=== PATIENT | male | born 1995 | race Caucasian/White ===

== ENCOUNTER 2017-05-17 16:07 | Emergency (ER) | payer BC ==
[~2017-05-17] VITALS: Ht 188 cm; Wt 113.4 kg
[2017-05-17 16:50] LABS: BASOPHILS % (AUTO) 1.2 % (0.0-2.0); EOSINOPHILS % (AUTO) 1.9 % (0.0-3.0); LYMPHOCYTES % (AUTO) 24.1 % (20.0-45.0); MEAN CORPUSCULAR HEMOGLOBIN 30.3 PG (27.0-31.0); MEAN CORPUSCULAR HGB CONC 34.5 G/DL (32.0-36.0); MEAN CORPUSCULAR VOLUME 88 FL (80-99); MONOCYTES % (AUTO) 8.9 % (1.0-10.0); PLATELET COUNT 240 K/UL (150-450); RED BLOOD COUNT 5.52 M/UL (4.70-6.10); RED CELL DISTRIBUTION WIDTH 11.3 % (11.6-14.8); WHITE BLOOD COUNT 11.3 K/UL (4.8-10.8)
[2017-05-17 17:06] LABS: TROPONIN I < 0.30 ng/mL (<=0.30)
[2017-05-17 17:09] LABS: ALANINE AMINOTRANSFERASE 17 U/L (3-41); ALBUMIN/GLOBULIN RATIO 1.5 (1.0-2.7); ALCOHOL < 10 mg/dL; ANION GAP 21 (5-15); ASPARTATE AMINO TRANSFERASE 15 U/L (5-40); CALCIUM 9.7 mg/dL (8.6-10.2); CARBON DIOXIDE 22 mEQ/L (20-30); CHLORIDE 96 mEQ/L (98-107); GLOMERULAR FILTRATION RATE > 60 mL/min (>60); HEMOLYSIS 9; POTASSIUM 4.4 mEQ/L (3.4-4.9); SODIUM 139 mEQ/L (135-145); TOTAL PROTEIN 7.9 g/dL (6.6-8.7)
--- NOTE | 2017-05-17 17:24 | Emergency Room Report ---
History of Present Illness General Chief Complaint: Seizure Source: Patient Present Illness HPI This patient presents for a seizure that was witnessed by his coworkers just prior to arrival. The patient states that he was in [place] this last weekend and and just had a first time seizure there. He states his first-time seizure was in the middle of the night and lasted less than a minute. The patient states that he hadn't slept much in had been drinking alcohol all day. He states that he wasn't really intoxicated. However, he states that just before she went to lay down he got very upset and had a panic attack and about 30 minutes later is when he was witnessed having a seizure. He did get seen in an ER 5 days ago and his license was revoked. He states that he saw a neurologist the next day and is planned undergo an EEG and an MRI tomorrow. He has not had a seizure since 8 days ago until today. He states he went to work today in his normal state of health. He admits he did get sunburned this weekend. He did drink last night but only drank a few beers. He states he has never had a history of seizure. Per report, the coworkers the patient noted that he had a tonic clonic seizure. The patient does not recall any of the events. He states he woke up being placed on a stretcher and moved into an ambulance. He denies drug use. He denies recent trauma. He denies headache. He denies fever or chills. He denies neck pain. He states that he feels back to baseline now. He has no other complaints. Allergies: Coded Allergies: PINEAPPLE (Verified Allergy, Severe, 05/17/17) SWELLING OF THROAT Patient History Past Medical History: see triage record, DM Social History: Reports: alcohol use, Denies: drug use, smoking Reviewed Nursing Documentation: PMH: Agreed, PSxH: Agreed Nursing Documentation-PMH Past Medical History: No History, Except For Hx Seizures: Yes Review of Systems All Other Systems: negative except mentioned in HPI Physical Exam Vital Signs Date Time Temp Pulse Resp B/P Pulse Ox O2 Delivery O2 Flow Rate FiO2 05/17/17 16:12 98.8 92 28 119/67 95 Room Air Sp02 EP Interpretation: reviewed, normal General Appearance: no apparent distress, alert, GCS 15, non-toxic Head: normocephalic, atraumatic Eyes: bilateral eye PERRL, bilateral eye normal inspection ENT: hearing grossly normal, normal pharynx, no angioedema, normal voice, other - Facial abrasions on L. forehead, nose and L. cheek. Neck: full range of motion, supple/symm/no masses Respiratory: chest non-tender, lungs clear, normal breath sounds, speaking full sentences Cardiovascular #1: regular rate, rhythm, no edema Gastrointestinal: normal bowel sounds, non tender, soft, non-distended, no guarding, no rebound Rectal: deferred Musculoskeletal: back normal, gait/station normal, normal range of motion, non- tender Neurologic: alert, oriented x3, responsive, motor strength/tone normal, sensory intact, speech normal Psychiatric: judgement/insight normal, memory normal, mood/affect normal, no suicidal/homicidal ideation Skin: normal color, no rash, warm/dry, well hydrated Medical Decision Making Diagnostic Impression: Primary Impression: Seizure Additional Impression: Seizure disorder ER Course This patient now has had 2 seizures in the past week. These are new onset. This patient has never had seizures. The patient also has an EKG with a incomplete right bundle branch block and is not normal for his age. His laboratory workup is noncontributory. This included a CBC, CMP, cardiac enzymes and drug screen. This patient will need to be admitted for further assessment of now only current seizure disorder. Patient will likely need an MRI of his brain and to be seen by a neurologist. He may also need a cardiac workup. The patient is admitted for further evaluation and treatment. Labs Test 05/17/17 16:20 White Blood Count 11.3 K/UL (4.8-10.8) Red Blood Count 5.52 M/UL (4.70-6.10) Hemoglobin 16.7 G/DL (14.2-18.0) Hematocrit 48.4 % (42.0-52.0) Mean Corpuscular Volume 88 FL (80-99) Mean Corpuscular Hemoglobin 30.3 PG (27.0-31.0) Mean Corpuscular Hemoglobin Concent 34.5 G/DL (32.0-36.0) Red Cell Distribution Width 11.3 % (11.6-14.8) Platelet Count 240 K/UL (150-450) Mean Platelet Volume 7.0 FL (6.5-10.1) Neutrophils (%) (Auto) 64.0 % (45.0-75.0) Lymphocytes (%) (Auto) 24.1 % (20.0-45.0) Monocytes (%) (Auto) 8.9 % (1.0-10.0) Eosinophils (%) (Auto) 1.9 % (0.0-3.0) Basophils (%) (Auto) 1.2 % (0.0-2.0) Sodium Level 139 mEQ/L (135-145) Potassium Level 4.4 mEQ/L (3.4-4.9) Chloride Level 96 mEQ/L (98-107) Carbon Dioxide Level 22 mEQ/L (20-30) Anion Gap 21 (5-15) Blood Urea Nitrogen 11 mg/dL (7-23) Creatinine 1.0 mg/dL (0.7-1.2) Estimat Glomerular Filtration Rate > 60 mL/min (>60) Glucose Level 80 mg/dL (74-106) Calcium Level 9.7 mg/dL (8.6-10.2) Total Bilirubin 0.7 mg/dL (0.0-1.2) Aspartate Amino Transf (AST/SGOT) 15 U/L (5-40) Alanine Aminotransferase (ALT/SGPT) 17 U/L (3-41) Alkaline Phosphatase 76 U/L (40-129) Troponin I < 0.30 ng/mL (<=0.30) Total Protein 7.9 g/dL (6.6-8.7) Albumin 4.8 g/dL (3.5-5.2) Globulin 3.1 g/dL Albumin/Globulin Ratio 1.5 (1.0-2.7) Serum Alcohol < 10 mg/dL EKG Diagnostic Results Rate: normal Rhythm: NSR ST Segments: no acute changes Other Impression NSR. RBBB Rhythm Strip Diag. Results EP Interpretation: yes Rate: 70's Rhythm: NSR, no PVC's, no ectopy Chest X-Ray Diagnostic Results Chest X-Ray Ordered: Yes # of Views/Limited/Complete: 1 View Interpretation: no consolidation, no effusion, no pneumothorax, no acute cardiopulmonary disease Indication: Other - seizure Impression: No acute disease Date Electronically Signed: May 17, 2017 Time Electronically Signed: 18:50 Interpreting ER Physician: Debby CT/MRI/US Diagnostic Results CT/MRI/US Diagnostic Results : Imaging Test Ordered: CT head Impression No acute findings. See official report. Last Vital Signs Date Time Temp Pulse Resp B/P Pulse Ox O2 Delivery O2 Flow Rate FiO2 05/17/17 16:12 98.8 92 28 119/67 95 Room Air Disposition: ADMITTED INPATIENT Condition: Serious PRADEEP LOUIS D.O. May 17, 2017 17:24
[2017-05-17 19:05] VITALS: BP 114/78
[2017-05-17 19:13] LABS: APPEARANCE,URINE CLEAR; KETONES,URINE NEGATIVE (NEGATIVE); LEUKOCYTE ESTERASE ,URINE NEGATIVE (NEGATIVE); NITRITE,URINE NEGATIVE (NEGATIVE); PH,URINE 6 (4.5-8.0); PROTEIN,URINE 3+ (NEGATIVE); UROBILINOGEN,URINE NORMAL MG/DL (0.0-1.0)
[2017-05-17 19:30] VITALS: BP 120/78
[2017-05-17] MEDS ORDERED: Morphine Sulfate 2mg/ml Inj IVP PRN (19:45)
[2017-05-17] MEDS ORDERED: Miralax 17gm pkt ORAL PRN (19:45)
[2017-05-17] MEDS ORDERED: LORazepam Inj 2mg/ml 1ml IV PRN (19:45)
[2017-05-17] MEDS ORDERED: Zolpidem 5mg tab ORAL PRN (19:45)
[2017-05-17] MEDS ORDERED: Mylanta II UD 30ml ORAL PRN (19:45)
[2017-05-17 19:53] LABS: BACTERIA,URINE OCCASIONAL /HPF; RBC,URINE 0-2 /HPF (0 - 0); WBC,URINE 0-2 /HPF (0 - 0)
[2017-05-17] MEDS ORDERED: Heparin 5000 units/ml inj SUBQ SCH (21:00)
[2017-05-17 21:30] VITALS: BP 135/88
--- NOTE | 2017-05-18 12:55 | Diagnostic Imaging Report ---
Indication: SZ Technique: One view of the chest Comparison: none Findings: Lungs and pleural spaces are clear. Heart size is normal. Inspiration is suboptimal Impression: No acute process
--- NOTE | 2017-05-18 13:36 | Diagnostic Imaging Report ---
Indications: Seizures Technique: Continuous helical CT imaging of the brain was performed with automatic exposure control on a Siemens sensation [address] scanner. Axial and coronal images were reconstructed at 5 mm slice thickness and interval. CTDI volume(s): 70 mGy Total DLP: 1481 mGy-cm Findings: Comparison: None. Intracranial anatomy is unremarkable. No evidence of mass or hemorrhage, other attenuation abnormality, mass effect, midline shift, hydrocephalus or increased intracranial pressure. Bone window images are unremarkable. Visualized paranasal sinuses and mastoid air cells are clear. IMPRESSION: Negative noncontrast CT scan of the brain . Examination suboptimal for evaluation of first-time seizure. MRI of the brain without and with gadolinium, seizure protocol, recommended for more complete evaluation, as clinically indicated.. The CT scanner at [facility] is accredited by the [employer] and the scans are performed using protocols designed to limit radiation exposure to as low as reasonably achievable to attain images of sufficient resolution adequate for diagnostic evaluation.
--- NOTE | 2017-05-18 14:59 | Cardiology Report ---
APPROVED REPORT EKG Measurement Heart [id number] Sinus bradycardia RSR' or QR pattern in V1 suggests right ventricular conduction delay Borderline ECG
--- NOTE | 2017-05-18 15:01 | Cardiology Report ---
APPROVED REPORT EKG Measurement Heart [id number] Normal sinus rhythm Possible Left atrial enlargement Incomplete right bundle branch block Borderline ECG
== END 2017-05-17 22:02 | disposition left against medical advice (07) ==
LOC: EDBD 16:07 → EMR 17:25
DX: G40.909 Epilepsy, unspecified, not intractable, without status epilepticus (principal); S00.31XA Abrasion of nose, initial encounter; S00.81XA Abrasion of other part of head, initial encounter; W19.XXXA Unspecified fall, initial encounter; Y92.89 Other specified places as the place of occurrence of the external cause; Z91.018 Allergy to other foods
CPT/HCPCS: 36415; 70450; 71010; 80053; 80299; 80300; 81003; 82962; 84484; 85025; 93005; 99284; G0480; 80329